=== PATIENT | male | born 1975 | race Caucasian/White ===

== ENCOUNTER 2018-02-17 06:34 | Observation (INO) ==
[2018-02-17] MEDS ORDERED: Thrombin Topical Soln 5,000 UNIT Vial TOPICAL ONE (07:18)
[2018-02-17] MEDS ORDERED: Gelatin Size 100 Topical Foam ONE (07:18)
[2018-02-17] MEDS ORDERED: Propofol Inj 500 MG/50 ML Vial ONE (07:23)
[2018-02-17] MEDS ORDERED: Chlorhexidine Gluconate 2% 1 Pack (2 Cloths) TOPICAL ONE (07:38)
[2018-02-17] MEDS ORDERED: Metoprolol Tartrate 25 MG Tablet PO ONE (07:38)
[2018-02-17] MEDS ORDERED: Sod Chloride 0.9% Inj 1,000 ML IV.SIG SCH (07:45)
[2018-02-17] MEDS ORDERED: Vancomycin Inj 1,000 MG in Sodium Chlor 0.9% Inj 250 ML IV.SIG SCH (08:00)
[2018-02-17] MEDS ORDERED: Sodium Chlor 0.9% Inj 500 ML IV.SIG SCH (08:00)
[2018-02-17] MEDS ORDERED: Lidocaine PF 1% Inj 5 ML Syringe INFILTRATN ONE (11:44)
[2018-02-17] MEDS ORDERED: Normosol-R pH 7.4 Inj 2,000 ML IV.CONT ONE (11:44)
[2018-02-17] MEDS ORDERED: Succinylcholine Inj 100 MG/5 ML Syringe IV.PUSH ONE (11:44)
[2018-02-17] MEDS ORDERED: Phenylephrine/NS 1000 MCG/10ML Syringe IV.PUSH ONE (11:44)
[2018-02-17] MEDS ORDERED: ceFAZolin 2 GM Premix Inj 2 GM/50 ML PIGGYBACK IV.SIG ONE (11:52)
[2018-02-17] MEDS ORDERED: fentaNYL Citrate Inj 100 MCG/2 ML Ampul ONE ×2 (12:14→14:45)
--- NOTE | 2018-02-17 14:35 | XR ---
EXAM DATE: 02/17/2018 2:32 PM EDT AGE/SEX: 42 years / Male INDICATIONS: Cervical diskectomy with Peek cage, C6-7. CLINICAL DATA: This is the patient's initial encounter. Patient reports that signs and symptoms have been present for 1 day and indicates a pain score of Nonresponsive. MEDICAL/SURGICAL HISTORY: Non-responsive. Non-responsive. COMPARISON: No prior exams available for comparison. FINDINGS: Very limited intraoperative film demonstrates disc replacement at C6-7. Hardware appears very well po sitioned. Alignment is good. CONCLUSION: Well aligned disc replacement at C6-7. Electronically signed by: Edson Du MD 02/17/2018 2:34 PM EDT
[2018-02-17] MEDS ORDERED: Bisacodyl 10 MG Supp RECTAL PRN ×2 (15:25→15:27)
[2018-02-17] MEDS: Sod Chloride 0.9% Inj 1,000 ML IV.CONT SCH (15:30)
--- NOTE | 2018-02-17 15:50 | P.OP ---
Preoperative Diagnosis: C6-7 disk herniation Postoperative Diagnosis: C6-7 disk herniation Date of procedure: 02/17/18 Procedure: C6-C7 anterior cervical discectomy, interbody arthroplasty using Mobi C Anesthesia: BRENDA Surgeon: Paul Frost MD Cloth Examiner Hand: Feliz Chappell Pathology: none sent Operation and Findings: INDICATIONS FOR THE PROCEDURE Mr. Mccauley is a 42 year-old female who presented with intractable neck pain and clinical evidence of C7 cervical radiculopathy. He was found to a large disk herniation a C6-7 causing significant mass effect on the nerve roots. He failed multiple modalities of nonsurgical treatment including physical therapy, analgesics, antiinflammatories, and pain management with epidural steroid injections. The severity of her pain and symptoms were affecting her quality of life. An anterior cervical discectomy and arthroplasty were indicated. The [id number] details of the surgical procedure, indications, alternatives, risks and potential complications were fully discussed with the patient. The patient fully understood. All his questions were answered. No guarantees were given. She voiced requesting the procedure and signed informed consents. She was offered the alternative of delaying the procedure and continuing with nonsurgical management. DETAILS OF THE SURGICAL PROCEDURE SURGICAL APPROACH A skin incision was made along the inferior cervical crease on the left side with a #10 blade. The dissection was carried out through the platysma exposing the sternocleidomastoid muscle. The cervical spine was approached following the fascial layers of the neck, just medial to the anterior border of the sternocleidomastoid and carotid sheath by a combination of sharp and dull dissection. The omohyoid muscle was identified and carefully dissected laterally and the deep cervical fascia was carefully opened. The longus colli muscles were retracted to each side of the midline. A marker was placed at the c5-6 disc space and a cross-table lateral x-ray performed with a C-arm. An AP xray was then obtained as well, and the midline of the disk space was defined. SURGICAL DECOMPRESSION In order to decompress the anterior surface of the spinal cord it was necessary to perform a microsurgical resection of the disk. At this point in the procedure the operating microscope was draped in the usual sterile fashion and brought to the field. The rest of the surgical procedure was performed using microdissection technique with the exception of the closure. Under the operative microscopic a self-retaining retractor was placed underneath the longus colli muscle. The annulus was incised with a #15 blade and microdiscectomy was then carefully carried out using angled curets and pituitary forceps. The patient had a large right disk extrusion which was producing mass affect on the exiting nerve root. This was carefully dissected with a nerve hock and resected with a think foot plate 2 mm Kerrison under high magnification. The posterior longitudinal ligament was then elevated with an angled curet and incised with a 15 bladed knife. A careful resection of the posterior longitudinal ligament was carried out using a thin footplate 2 mm Kerrison. Extruded disk fragments were causing mechanical compression over the exiting C6 nerve root were carefully dissected. The decompression was then carried out laterally, and a bilateral foraminotomy was performed with a 2 mm thin foot Kerrison. The epidural space was the systematically assessed with a nerve hook in search for disk fragments of scar tissue. An excellent decompression was achieved in both, the dural sac and bilateral exiting nerve roots. The incision was then irrigated with a large amount of antibiotic solution INTERBODY ARTHROPLASTY In order to avoid collapse of the disk space which would result in bilateral foraminal stenosis, and in order to maintain disk space height and function minimally development of adjacent level degeneration, it was necessary to place an interbody device. At this point of the procedure, gentle distraction was applied. The size of the interbody device was then assessed using a trial, and a cross table xray was done for confirmation of appropriate size and position of the device. Then the disk space was irrigated with antibiotic solution, and a 15mm by 6mm Mobi C artificial disk was carefully impacted into the disc space C5-6. An excellent position of the device was achieved. This was confirmed anatomically by feeling the space posterior to the implant and distance to the anterior surface of the dural sac. Radiological confirmation of the position was performed with a cross table AP and lateral X-ray views, performed with the C-arm. COMPLETION OF THE SURGICAL PROCEDURE Once that each interbody device was in an appropriate position, the distraction was discontinued. The position of the device as well as alignment of the spine were assessed anatomically by direct visualization, and radiologically by performing an AP and lateral X-ray of the cervical spine with the C-arm. The position of the implant was excellent. The incision was irrigated with several liters of antibiotic solution. Hemostasis was achieved with a bipolar. A 7 mm Arnold-Nguyen drain was left in the prevertebral space and externalized through a separate stab incision. The incision was then closed in layers. 3-0 Vicryl with interrupted sutures was used to close the platysma and subcutaneous tissue. The skin was closed with 4- 0 running subcuticular Vicryl and Dermabond was applied to the skin. The drain was secured with a 3-0 nylon. At the end of the procedure the sponge, needle and instrument counts were all correct. The estimated blood loss was less than 30 cc. No blood transfusion was given. No intraoperative complications occurred. The patient received prophylactic antibiotics. The patient was then extubated and transferred to the recovery room in stable condition.
[2018-02-17] MEDS ORDERED: ceFAZolin 2 GM Premix Inj 2 GM/50 ML PIGGYBACK IV.SIG SCH (20:00)
[2018-02-17] MEDS: Senna/Docusate Sodium 8.6/50 MG Tablet PO SCH (20:50)
[2018-02-17] MEDS: ceFAZolin Inj 2,000 MG in Sodium Chlor 0.9% Inj 100 ML IV.SIG SCH (20:50)
[2018-02-17] MEDS ORDERED: Senna/Docusate Sodium 8.6/50 MG Tablet PO SCH (21:00)
[2018-02-18] MEDS: Sod Chloride 0.9% Inj 1,000 ML IV.CONT SCH ×2 (01:53→12:30)
[2018-02-18] MEDS: ceFAZolin Inj 2,000 MG in Sodium Chlor 0.9% Inj 100 ML IV.SIG SCH ×2 (04:22→12:29)
[2018-02-18 05:38] VITALS: RESP 16; TEMP 97.4
[2018-02-18 08:53] VITALS: BP 141/81; PULSE 85; O2SAT 97
[2018-02-18] MEDS: Senna/Docusate Sodium 8.6/50 MG Tablet PO SCH (09:01)
--- NOTE | 2018-02-18 10:21 | P.PNNS ---
Subjective Interval history: Pt awake and alert. Denies neck pain. No radiculopathy in UEs. Paresthesias in right 4th and 5th fingers with some improvement. Physical Exam Vital signs: Vital Signs 02/17/18 14:37 02/17/18 14:45 02/17/18 15:00 Temperature 97.7 F Pulse Rate 83 75 77 Respiratory Rate 15 12 19 Blood Pressure 140/83 130/82 137/84 Pulse Oximetry 100 99 99 02/17/18 15:15 02/17/18 15:30 02/17/18 15:45 Temperature Pulse Rate 76 83 77 Respiratory Rate 18 20 18 Blood Pressure 137/83 141/87 H 130/85 Pulse Oximetry 99 98 98 02/17/18 16:00 02/17/18 17:00 02/17/18 20:00 Temperature 97.1 F L 98.3 F Pulse Rate 93 H 99 H Respiratory Rate 18 18 17 Blood Pressure 152/45 H 149/85 H Pulse Oximetry 96 94 L 02/18/18 00:00 02/18/18 04:00 02/18/18 08:00 Temperature 97.8 F 97.4 F L 97.4 F L Pulse Rate 96 H 78 85 Respiratory Rate 17 16 16 Blood Pressure 144/84 H 140/85 141/81 H Pulse Oximetry 945 H 96 97 Intake & Output 02/17/18 02/18/18 02/18/18 18:59 06:59 18:59 Intake Total 300 / 300 1186 / 1186 Output Total 670 / 670 Balance 300 / 300 516 / 516 Weight 104.5 kg 104.2 kg Intake: IV 300 / 300 1186 / 1186 NS Inj 1,000 ML @ 100 mls/hr IV 990 / 990 .CONT .Q10H YIN Rx#:[id number] Vancomycin Inj 1,000 MG In NS 250 / 250 Inj 250 ML @ 250 mls/hr IV.SIG DIETARY SERVER YIN Rx#:[id number] Ancef 2 GM Premix Inj 2 gm In 50 / 50 50 ml @ 0 mls/hr IV.SIG .STK- MED ONE Rx#:[id number] Ancef Inj 2,000 MG In NS Inj 196 / 196 100 ML @ 200 mls/hr IV.SIG Q8H YIN Rx#:[id number] Output: Urine 650 / 650 Wound Drainage # 1 Anterior Neck Other: # Voids 2 Date of Last Bowel Movement 02/17/18 Weight On Admission 104.5 kg - Constitutional no acute distress, cooperative - Routine HEENT Exam Head: Present: normocephalic, atraumatic Eye: Present: PERRL, conjunctival icterus ENT: Present: oropharynx clear - Routine Neck Exam Present: trachea midline - Routine Respiratory Exam Present: CTA bilaterally. Absent: respiratory distress, rhonchi, wheezes - Routine Cardiovascular Exam Present: RRR, S1, S2. Absent: murmur - Routine Abdominal Exam Present: soft, normoactive bowel sounds - Routine Skin Exam Absent: cyanosis, erythema Comments: Incision bandaged clean and dry with KIERAN drain in place. - Routine Neurological Exam Present: alert, oriented X3, moving all extremities, normal speech. Absent: motor deficit - Routine Psychiatric Exam Present: normal affect, cooperative Assessment and Plan - Assessment (1) Obstructive sleep apnea on CPAP Code(s): G47.33 - Obstructive sleep apnea (adult) (pediatric); Z99.89 - Dependence on other enabling machines and devices Status: Acute (2) [place] teeth removed Code(s): K08.409 - Partial loss of teeth, unspecified cause, unspecified class Status: Acute (3) Right arm numbness Code(s): R20.2 - Paresthesia of skin Status: Acute (4) Hx MRSA infection Code(s): Z86.14 - Personal history of Methicillin resistant Staphylococcus aureus infection Status: Acute (5) ICD (implantable cardioverter-defibrillator) infection Code(s): T82.7XXA - Infection and inflammatory reaction due to other cardiac and vascular devices, implants and grafts, initial encounter Status: Acute (6) Hx of cardiac arrest Code(s): Z86.74 - Personal history of sudden cardiac arrest Status: Acute (7) Cervical disc herniation Code(s): M50.20 - Other cervical disc displacement, unspecified cervical region Status: Acute - Plan 42 y/o M s/p C6-C7 anterior cervical discectomy, interbody arthroplasty using Mobi C by Dr. Frost on 02/17/18. Pt is doing well. P: D/C KIERAN drain. Likely discharge home today Follow up with Dr. Frost as scheduled.
--- NOTE | 2018-02-23 10:37 | P.DS ---
Date of admission: 02/17/18 15:36 Primary care physician: Latha Wheeler DO Brief History from admission: Mr. Mccauley is a 42 year-old female who presented with intractable neck pain and clinical evidence of C7 cervical radiculopathy. He was found to a large disk herniation a C6-7 causing significant mass effect on the nerve roots. He failed multiple modalities of nonsurgical treatment including physical therapy, analgesics, antiinflammatories, and pain management with epidural steroid injections. The severity of her pain and symptoms were affecting her quality of life. An anterior cervical discectomy and arthroplasty were indicated. DS: Medications - Discharge Medications Prescriptions: hydrocodone-acetaminophen 2 tab PO Q4-6H PRN #20 tab PRN Reason: Pain Scale 6 To 10 DS: Summary Hospital Course: Mr. Mccauley underwent C6-C7 anterior cervical discectomy, interbody arthroplasty using Mobi C on 02/17/18. His surgery went well without complications and he was discharged home the following day. - Time Spent with Patient Total time spent providing and/or coordinating discharge services: Less than 30 minutes - Quality: VTE Deep Vein Thrombosis/Pulmonary Embolism Present on Admission: No Results Procedures completed during hospitalization: C6-C7 anterior cervical discectomy, interbody arthroplasty using Mobi C - Impressions ITS Impressions Cervical Spine X-Ray 02/17/18 00:00 CONCLUSION: Well aligned disc replacement at C6-7. Discharge Plan - Discharge Disposition Patient Disposition: 01 Discharge Home - Discharge Condition Condition: Good - Discharge Order Discharge Orders: Discharge Order (Routine); Ordered 02/18/18 Ordered By: Nick Segura - Physicians Team Primary Care Provider: Latha Wheeler Attending Provider: Paul Frost - Rxs /Orders / Referrals /Forms Prescriptions: New hydrocodone-acetaminophen 10-325 mg Tablet 2 tab PO Q4-6H PRN (Reason: Pain Scale 6 To 10) Qty: 20 RF: 0 Continue multivitamin [Daily Multi-Vitamin] Tablet 1 tab PO DAILY Referrals: Latha Wheeler DO [Primary Care Provider] - See Instructions - Discharge Instructions Patient Printed Instructions: Hydrocodone/Acetaminophen (By mouth), Anterior Cervical Discectomy (DC), Fall Prevention (DC), [place] J Collar (DC) Additional Instructions: IT HAS BEEN OUR PLEASURE TAKING CARE OF YOU! GOOD LUCK WITH YOUR RECOVERY! WE HOPE THAT YOU HAVE HAD AN EXCEPTIONAL STAY HERE AT [facility]! - Post Discharge Care Plan Care Plan Goals: Your Health Problems: Goals to Promote Your Health: * To prevent worsening of your condition * To maintain your health at the optimal level Directions to Meet Your Goals: * Take your medications as prescribed * Follow your dietary instruction * Follow activity as directed * Keep your appointments as scheduled * Take your immunizations and boosters as scheduled * If your symptoms worsen call your PCP * If no PCP go to Urgent Care or Emergency Room Smoking is dangerous to your health. Avoid second hand smoke. You may reach the 24-hour crisis hotline for domestic abuse at .
== END 2018-02-18 14:53 | disposition home or self-care (01) ==
LOC: HSDI 06:34 → HSDC 06:34 → N06 16:18
PROVIDERS: ADMIT Neurological Surgery; ATTEND Neurological Surgery